=== PATIENT | female | born 1950 | race Caucasian/White ===

== ENCOUNTER 2018-07-10 10:36 | Emergency (ER) | payer MEDICARE, BC ==
[~2018-07-10] VITALS: Wt 61.0 kg
[2018-07-10 10:40] VITALS: BP 159/70; PULSE 70; RESP 18
[2018-07-10] MEDS ORDERED: traMADol 50 MG TAB PO ONE (11:30)
[2018-07-10] MEDS ORDERED: TRAM50TA2 PO (12:44)
--- NOTE | 2018-07-10 13:04 | ERD ---
ER Documentation Chief Complaint Chief Complaint TRIPPED , HAS JOSE FOOT PAIN HPI 68-year-old female presents with foot pain on both feet after falling with her high heels on yesterday. She landed against the window but turned her feet awkwardly as a result. She denies any loss of consciousness or head injuries. She states that she is only able to walk on her heels and cannot put pressure on the front of her feet. She describes the pain as sharp and constant. She has been taking Tylenol and ibuprofen at home with very little relief of her pain. She states that she has pain with range of motion of her feet. Reports that anything touching her light as her bed sheets cause dramatic pain. She states that the pain does not radiate anywhere denies any previous injury to her feet. ROS All systems reviewed and are negative except as per history of present illness. Medications Home Meds Active Scripts Tramadol HCl (Tramadol HCl) 50 Mg Tablet, 50 MG PO Q4 PRN for PAIN, #20 TAB Prov:TRACY URBANO PA-C 07/10/18 Allergies Allergies: Coded Allergies: Penicillins (Verified Allergy, Unknown, 07/10/18) Sulfa (Sulfonamide Antibiotics) (Verified Allergy, Unknown, 07/10/18) PMhx/Soc Hx Alcohol Use: No Hx Substance Use: No Hx Tobacco Use: No Smoking Status: Never smoker FmHx Family History: diabetes Physical Exam Vitals Vital Signs Date Temp Pulse Resp B/P (MAP) Pulse Ox O2 O2 Flow FiO2 Time Delivery Rate 07/10/18 98.1 70 18 159/70 99 10:40 (99) Physical Exam Const: No acute distress Skin: No petechiae or rashes Back: No midline or flank tenderness Ext: Right foot: 2+ distal and pedal pulses. Tenderness across 3rd and 4th metatarsal. Pain with ROM of foot. Slight edema across top of foot Left foot: 2+ distal and pedal pulses. Tenderness across 3rd and 4th metatarsal. Pain with ROM of foot. Slight edema across top of foot Neur: Awake and alert Psych: Normal Mood and Affect Results 24 hrs Current Medications Medications Dose Sig/Alicia Start Time Status Last (Trade) Ordered Route PRN Stop Time Admin Dose Reason Admin Tramadol 50 mg ONCE ONCE 07/10/18 DC 07/10/18 HCl PO 11:30 07/10/18 11:42 (Ultram) 11:31 Procedures/MDM ED COURSE: The patient was stable throughout ED course. I kept the patient and/or family informed of laboratory and diagnostic imaging results throughout the ED course. DIAGNOSTIC IMAGING: Read by radiologist.Xray left and right foot PROCEDURE: XR Left foot. CLINICAL INDICATION: Pain, fall TECHNIQUE: Three views of the left foot were obtained. COMPARISON: No prior studies are available for comparison. FINDINGS: There are subtle nondisplaced transverse fractures of the third and fourth metatarsal necks. There is a small focus of cortical irregularity between the first and second metatarsal bases on the AP view which may be from osseous spurring and bony overlap although a small cortical fracture is not excluded. There is hallux valgus deformity with mild osseous spurring and joint space narrowing of the first metatarsophalangeal joint. Mild joint space narrowing within the midfoot is also present. Bones are mildly osteopenic. The soft tissues are unremarkable. RPTAT: ZZ IMPRESSION: 1. Nondisplaced fractures of the third and fourth metatarsal necks. 2. Mild cortical irregularity between the second and first metatarsal bases on the AP view which may be from osseous spurring and bony overlap although a small cortical fracture is not excluded in which correlation with pain in this region is recommended. 3. Mild first metatarsophalangeal joint osteoarthrosis. .Barb Mclain MD, MD Date Time Electronically viewed and signed by .Barb Mclain MD, MD on 07/10/2018 12:12 PROCEDURE: XR right foot. CLINICAL INDICATION: Pain, fall TECHNIQUE: Three views of the right foot were obtained. COMPARISON: No prior studies are available for comparison. FINDINGS: There is a minimally-displaced oblique fracture of the distal third metatarsal shaft as well as a nondisplaced transverse fracture of the neck of the fourth metatarsal. There is slight hallux valgus with mild osseous spurring and minimal joint space narrowing of the first metatarsophalangeal joint. Mild joint space narrowing within the midfoot is also present. Alignment is intact. The bones are mildly osteopenic. Mild soft tissue swelling within the forefoot is noted. RPTAT: ZZ IMPRESSION: 1. Minimally displaced oblique fracture of the distal third metatarsal shaft. 2. Nondisplaced fracture of the neck of the fourth metatarsal. 3. 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 .Barb Mclain MD, MD Date Time Electronically viewed and signed by .Barb Mclain MD, on 07/10/2018 12:14 MEDICATIONS GIVEN: Tramadol Patient tolerated medication well with no adverse reactions. Patient reported improvement in pain. MEDICAL DECISION MAKING: Patient is a 68-year-old female presenting from a fall yesterday. On physical exam she is very tender to touch on both feet. She states that she was wearing high heels last night and tripped over her cats but landed against the window and denies any head trauma or loss of consciousness. He is wearing high heels yesterday and her feet moved awkwardly during her fall. With x-ray imaging read by the radiologist, patient had fracture of the third and fourth metatarsal in both the left and right foot. She was against heavy [place] pain management but ibuprofen and Tylenol did not do anything for pain so we agreed on tramadol for pain management. Patient was placed in ulnar boot on left and right foot and instructed to wear the boot during the day until she is followed up by either primary care or Ortho. There is little concern for Lisfranc kori fracture, muscle strain, malignant source, osteomyelitis, or open fractures. vital signs were reviewed. Patient is afebrile. Patient was not hypoxic. Patient was hemodynamically stable. PRESCRIPTION: Tramadol, Ortho boot for left and right foot DISCHARGE: At this time, patient is stable for discharge and outpatient management. I have instructed the patient to follow-up with his/her primary care physician in 1-2 days. I have discussed with the patient the possibility of needing to see a specialist for further workup and imaging studies if symptoms persist. I have instructed the patient to promptly return to the ER for any new or worsening symptoms including increased pain, fever, nausea, vomiting, weakness or LOC. The patient and/or family expressed understanding of and agreement with this plan. All questions were answered. Home care instructions were provided. Disclaimer: Inadvertent spelling and grammatical errors are likely due to EHR/dictation software use and do not reflect on the overall quality of patient care. Also, please note that the electronic time recorded on this note does not necessarily reflect the actual time of the patient encounter. Departure Diagnosis: Primary Impression: Metatarsal fracture Encounter type: initial encounter Metatarsal bone: unspecified metatarsal Fracture type: closed Physeal involvement: involving physis Salter-Jansen Fracture Type: unspecified configuration Laterality: unspecified laterality Qualified Codes: S99.109A - Unspecified physeal fracture of unspecified metatarsal, initial encounter for closed fracture Condition: Fair Patient Instructions: Finger and Toe Fractures (Broken Finger or Toe) Referrals: [facility] YOU HAVE RECEIVED A MEDICAL SCREENING EXAM AND THE RESULTS INDICATE THAT YOU DO NOT HAVE A CONDITION THAT REQUIRES URGENT TREATMENT IN THE EMERGENCY DEPARTMENT. FURTHER EVALUATION AND TREATMENT OF YOUR CONDITION CAN WAIT UNTIL YOU ARE SEEN IN YOUR DOCTORS OFFICE WITHIN THE NEXT 1-2 DAYS. IT IS YOUR RESPONSIBILITY TO MAKE AN APPOINTMENT FOR FOLOW-UP CARE. IF YOU HAVE A PRIMARY DOCTOR --you should call your primary doctor and schedule an appointment IF YOU DO NOT HAVE A PRIMARY DOCTOR YOU CAN CALL OUR PHYSICIAN REFERRAL HOTLINE AT IF YOU CAN NOT AFFORD TO SEE A PHYSICIAN YOU CAN CHOSE FROM THE FOLLOWING [facility] [address] [facility]. [facility] [address] [facility]. [facility] [address] [facility]. [facility] [address] [facility] [facility] [address] [facility]. [facility]. [address] [facility] YOU HAVE RECEIVED A MEDICAL SCREENING EXAM AND THE RESULTS INDICATE THAT YOU DO NOT HAVE A CONDITION THAT REQUIRES URGENT TREATMENT IN THE EMERGENCY DEPARTMENT. FURTHER EVALUATION AND TREATMENT OF YOUR CONDITION CAN WAIT UNTIL YOU ARE SEEN IN YOUR DOCTORS OFFICE WITHIN THE NEXT 1-2 DAYS. IT IS YOUR RESPONSIBILITY TO MAKE AN APPOINTMENT FOR FOLOW-UP CARE. IF YOU HAVE A PRIMARY DOCTOR --you should call your primary doctor and schedule and appointment IF YOU DO NOT HAVE A PRIMARY DOCTOR YOU CAN CALL OUR PHYSICIAN REFERRAL HOTLINE AT . IF YOU CAN NOT AFFORD TO SEE A PHYSICIAN YOU CAN CHOSE FROM THE FOLLOWING [facility] IN[facility]: [facility] [address] [place] [address] [facility] [address] [place] [address] [facility] [address] [place] [address] [facility] Urgent Care 7 a.m.- 11 p.m. Every Day of the Week NO APPOINTMENT OR AUTHORIZATION NEEDED Additional Instructions: Keep both feet stable and immobile. Wear boot both boots all day until following up with primary care or Ortho and keep feet elevated during the day. Call your primary care doctor TOMORROW for an appointment during the next 1-2 days.See the doctor sooner or return here if your condition worsens before your appointment time. TRACY URBANO PA-C Jul 10, 2018 13:03
== END 2018-07-10 13:00 | disposition home or self-care (01) ==
LOC: FTE 10:36
DX: S99.101A Unspecified physeal fracture of right metatarsal, initial encounter for closed fracture (principal); S99.102A Unspecified physeal fracture of left metatarsal, initial encounter for closed fracture; W01.0XXA Fall on same level from slipping, tripping and stumbling without subsequent striking against object, initial encounter; Y92.9 Unspecified place or not applicable
CPT/HCPCS: 73630